=== PATIENT | female | born 2000 | race Caucasian/White ===

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

== ENCOUNTER 2019-03-12 11:31 | Emergency (ER) | payer MEDICAID ==
[~2019-03-12] VITALS: Ht 167.6 cm; Wt 69.9 kg
[2019-03-12 11:45] VITALS: BP 111/66; Ht 167.6 cm; Wt 69.9 kg
== END 2019-03-12 12:15 | disposition home or self-care (01) ==
LOC: ED 11:31
DX: S09.90XA Unspecified injury of head, initial encounter (principal); R55 Syncope and collapse; N94.6 Dysmenorrhea, unspecified